=== PATIENT | female | born 1955 | race Caucasian/White ===

== ENCOUNTER → 2018-04-01 | Outpatient (CLI) | payer OTHER ==
[~2018-04-01] MED LIST: ASPI81TA50 PO; CLON0.3T PO; FLUO20TA11 PO; FURO20TA3 PO; GLIM4TAB2 PO; IBUP800T19 PO; INSU100I13 SQ; METF10007 PO; SIMV20TA3 PO; VALS1TAB3 PO
--- NOTE | 2018-04-01 14:36 | RAD ---
DATE: 04/01/2018 EXAM: MAMMO CRISTAL TROTTER, BREAST LEFT HISTORY: Left breast lump COMPARISON: 02/19/2015 This study was interpreted with the benefit of Computerized Aided Detection (CAD) Breast Density: SCATTERED The breast parenchyma shows scattered fibroglandular densities. Breast parenchyma level B. FINDINGS: 2-D and 3-D tomosynthesis imaging was performed in CC and MLO projections. A BB was placed over the area of palpable concern in the upper inner left breast. The underlying breast at the level of the BB shows only fatty tissues. No suspicious breast density is seen. No new or enlarging breast densities are evident. There are benign type calcifications in both breasts. No suspicious microcalcifications have developed. Left breast ultrasound, 04/01/2018: A targeted ultrasound exam was performed of the area of palpable concern. At the 10:00 location left breast approximately 12 cm from the nipple there is a smooth oval shaped subcutaneous nodule which demonstrates echogenicity similar to that of the adjacent fatty structures. It measures approximately 3 x 2 x 1 cm. It appears to be slightly larger than on the previous study. The features are compatible with a lipoma. No other abnormality abnormalities identified. IMPRESSION: 1. Stable mammograms without evidence of malignancy. 2. Subcutaneous lipoma in the upper inner left breast which appears to have increased slightly in size since 2016. BI-RADS CATEGORY: 2 BENIGN FINDING(S) RECOMMENDED FOLLOW-UP: 12M 12 MONTH FOLLOW-UP PQRS compliance statement: Patient information was entered into a reminder system with a target due date for the next mammogram. Mammography is a sensitive method for finding small breast cancers, but it does not detect them all and is not a substitute for careful clinical examination. A negative mammogram does not negate a clinically suspicious finding and should not result in delay in biopsying a clinically suspicious abnormality. "Our facility is accredited by the [employer] Mammography Program."
== END | disposition home or self-care (01) ==
LOC: MAMMO 12:58
PROVIDERS: ATTEND Physician Assistant Medical
DX: N63.22 Unspecified lump in the left breast, upper inner quadrant (principal)
CPT/HCPCS: 76641; 77066; G0279; 77062

== ENCOUNTER → 2018-07-20 | Day surgery (SDC) | payer OTHER ==
[~2018-07-20] MED LIST changes: +ALBUTEROL SULFATE 2.5 MG/3 ML NEBU. NEB PRN; +ATROPINE 0.5 MG/5 ML DISP.SYRIN. IV PRN; +FLUO40CA9 PO; +GABA-586 PO; +HYDR-2765 PO; +INSU100V SQ; +IV RINGERS SOLUTION,LACTATED 1,000 ML IV SCH; +LIDOCAINE 2% PF Vial for OR 5 ML VIAL. ONE; +MELO15TA6 PO; +NALOXONE 0.4 MG/ML VIAL. IV PRN; +ONDANSETRON PF 4 MG/2 ML VIAL. IV PRN; +PANT40TA5 PO; +PROPOFOL 20 ML IV ONE; +diphenhydrAMINE 50 MG/ML VIAL IV PRN
[2018-07-20 14:32] VITALS: BP 128/76
== END | disposition home or self-care (01) ==
LOC: SURG 11:50
PROVIDERS: ATTEND Internal Medicine Gastroenterology
DX: K20.8 Other esophagitis (principal); K22.2 Esophageal obstruction; E11.9 Type 2 diabetes mellitus without complications; I10 Essential (primary) hypertension; Z79.899 Other long term (current) drug therapy; Z90.710 Acquired absence of both cervix and uterus; Z79.84 Long term (current) use of oral hypoglycemic drugs; Z90.49 Acquired absence of other specified parts of digestive tract; Z98.890 Other specified postprocedural states; Z91.012 Allergy to eggs
CPT/HCPCS: 43239; 82947; J2704; J7120; J2001

== ENCOUNTER → 2018-08-02 | Outpatient (CLI) | payer OTHER ==
[2018-07-20 14:32] VITALS: BP 128/76
[~2018-08-02] MED LIST changes: -ALBUTEROL SULFATE 2.5 MG/3 ML NEBU. NEB PRN; -ATROPINE 0.5 MG/5 ML DISP.SYRIN. IV PRN; -IV RINGERS SOLUTION,LACTATED 1,000 ML IV SCH; -LIDOCAINE 2% PF Vial for OR 5 ML VIAL. ONE; -NALOXONE 0.4 MG/ML VIAL. IV PRN; -ONDANSETRON PF 4 MG/2 ML VIAL. IV PRN; -PROPOFOL 20 ML IV ONE; -diphenhydrAMINE 50 MG/ML VIAL IV PRN
--- NOTE | 2018-08-03 17:07 | RAD ---
EXAM: Single AP view of the lumbar spine was submitted for evaluation. DATE: 08/02/2018 4:31 PM INDICATION: Scoliosis progressing back pain COMPARISON: No Prior FINDINGS- IMPRESSION: Marked leftward curvature of the lumbar spine apex L3. Diffusely decreased bone mineral density. Moderate to severe multilevel disc height loss. Bony bridging is seen from the L2-L4 levels. SI joint degenerative changes are seen. Moderate colonic stool content. Electronically signed by: Ethan Chris MD (08/03/2018 5:04 PM) [facility]
== END | disposition home or self-care (01) ==
LOC: DXRAD 16:18
PROVIDERS: ATTEND Physician Assistant Medical
DX: M47.818 Spondylosis without myelopathy or radiculopathy, sacral and sacrococcygeal region (principal)
CPT/HCPCS: 72110

== ENCOUNTER 2018-10-06 16:31 | Inpatient (IN) | payer OTHER ==
[~2018-10-06] VITALS: Ht 160 cm; Wt 99.6 kg
--- NOTE | 2018-10-06 17:19 | PHYS DOC ---
Past History Past Medical History: Depression, Diabetes, Hypertension (REN BLACK DO) Past Surgical History: Appendectomy, Cholecystectomy, Other (REN BLACK DO) Smoking: Non-smoker Alcohol Use: Occasionally Drug Use: None (REN BLACK DO) Adult General Chief Complaint Chief Complaint: abdominal pain [facility] HPI 63-year-old female presents with left-sided abdominal pain. Patient status or hurting this morning out of the blue. She was doing a lot of moving around lifting things yesterday. The patient is diabetic. She is most concerned because she has had gangrenous bowel in the past and had 2 different surgeries for this. She is nervous about an obstruction. She has not eaten anything today. The pain is a deep ache, mild to moderate in intensity. She denies fever or chills. Denie s vomiting or diarrhea. (REN BLACK DO) Review of Systems Review of Systems Constitutional: Denies fever or chills [] Eyes: Denies change in visual acuity, redness, or eye pain [] HENT: Denies nasal congestion or sore throat [] Respiratory: Denies cough or shortness of breath [] Cardiovascular: No additional information not addressed in HPI [] GI: Lower quadrant abdominal pain. Denies nausea, vomiting, bloody stools or diarrhea [] : Denies dysuria or hematuria [] Musculoskeletal: Denies back pain or joint pain [] Integument: Denies rash or skin lesions [] Neurologic: Denies headache, focal weakness or sensory changes [] Endocrine: Denies polyuria or polydipsia [] All other systems were reviewed and found to be within normal limits, except as documented in this note. (REN BLACK DO) Allergies Allergies Allergies Coded Allergies Type Severity Reaction Last Updated Verified egg Allergy Intermediate 07/20/18 Yes morphine Adverse Reaction Intermediate Nausea 07/20/18 Yes (REN BLACK DO) Physical Exam Physical Exam Constitutional: Well developed, obese, well nourished, no acute distress, non-t oxic appearance. [] HENT: Normocephalic, atraumatic, bilateral external ears normal, oropharynx moist, no oral exudates, nose normal. [] Eyes: PERRLA, EOMI, conjunctiva normal, no discharge. [] Neck: Normal range of motion, no tenderness, supple, no stridor. [] Cardiovascular:Heart rate regular rhythm, no murmur [] Lungs & Thorax: Bilateral breath sounds clear to auscultation [] Abdomen: Bowel sounds normal, soft, LLQ tenderness, no masses, no pulsatile masses. [] Skin: Warm, dry, no erythema, no rash. [] Back: No tenderness, no CVA tenderness. [] Extremities: No tenderness, no cyanosis, no clubbing, ROM intact, no edema. [] Neurologic: Alert and oriented X 3, normal motor function, normal sensory function, no focal deficits noted. [] Psychologic: Affect normal, judgement normal, mood normal. [] (REN BLACK DO) EKG EKG [] (REN BLACK DO) Radiology/Procedures Radiology/Procedures [] (REN BLACK DO) Impressions: PROCEDURE: CT ABD PELV W/ IV CONTRST ONLY CT ABD PELV W/ IV CONTRST ONLY Indication: Left flank and abdominal pain Technique: Postcontrast CT imaging was performed of the abdomen pelvis, multiplanar reconstruction images submitted. No oral contrast was given. One or more of the following individualized dose reduction techniques were utilized for this examination: 1. Automated exposure control 2. Adjustment of the mA and/or kV according to patient size 3. Use of iterative reconstruction technique. Comparison: August 03, 2007 Findings: There is moderate stranding and hazy inflammatory type change about the distal descending and proximal sigmoid colon at which there are diverticula present, no abscess, significant free fluid, free air. Bowel is not significantly dilated. Appendix is not confidently identified if still present. Both kidneys enhancing, no hydronephrosis. There is a hypodense lesion of the inferior right kidney about 1 cm in size, density measurements of a cyst 4 Hounsfield units. There is small hypodense lesion of the superior left kidney too small to accurately characterize about 0.6 cm. There is no adrenal nodularity. There is no abnormality of the pancreas. There is accessory spleen. No focal abnormality is identified of the liver or spleen. There is likely hepatic steatosis. Gallbladder is not seen. There is no significant abnormality of the limited visualized lung bases. There is moderate to severe lumbar levoscoliosis. There is multilevel lumbar facet degenerative change. There is multilevel degenerative disc disease, degree of interbody fusion L3-L4 and L2-3. There is some variable lateral recess stenosis of the lumbar spine. There is multilevel lumbar neural foramina compromise as the left L4-5 and L5-S1, also of visualized inferior thoracic levels. There is also degree of narrowing on the right at L2-3, minimally on the right at L5-S1. IMPRESSION: 1. There is moderate inflammatory change about the distal descending and proximal sigmoid colon, evidence of diverticulitis. Colon screening is advised after resolution of acute symptoms if this has not been performed. 2. There is lumbar levoscoliosis. There is multilevel lumbar facet degenerative change and degenerative disc disease as well as variable lateral recess stenosis and thoracolumbar neural foramina compromise. 3. There is small right renal cyst, small hypodense lesion of superior left kidney too small to accurately characterize. 4. There is likely hepatic steatosis. Electronically signed by: Melissa Zhang MD (10/06/2018 6:46 PM) [facility] DICTATED AND SIGNED BY: MELISSA ZHANG MD (CONSTANTIN GOMEZ Jr., DO) Course & Med Decision Making Course & Med Decision Making Pertinent Labs and Imaging studies reviewed. (See chart for details) The patient's workup is pending. I'm signing the patient out to Dr. Gomez at 1814. He will determine her final disposition. [] (REN BLACK DO) Dragon Disclaimer Dragon Disclaimer This electronic medical record was generated, in whole or in part, using a voice recognition dictation system. (REN BLACK DO) Departure Departure: Impression: Primary Impression: Acute diverticulitis Disposition: ADMITTED INPATIENT Admitting Physician: Carlito Hogue (CONSTANTIN GOMEZ Jr., DO) Condition: IMPROVED Referrals: MOSES HERNANDEZ (PCP) REN BLACK DO Oct 06, 2018 17:19 CONSTANTIN GOMEZ Jr., DO Oct 06, 2018 19:55
[2018-10-06 17:40] LABS: BASO % 0 % (0-3); EOS # 0.1 x10^3/uL (0.0-0.7); EOS % 1 % (0-3); HEMATOCRIT 38.1 % (36.0-47.0); HEMOGLOBIN 13.2 g/dL (12.0-15.5); LYMPH # 1.4 x10^3/uL (1.0-4.8); LYMPH % 17 % (24-48); MEAN CORPUSCULAR HEMOGLOBIN 31 pg (25-35); MEAN CORPUSCULAR HGB CONC 35 g/dL (31-37); MEAN CORPUSCULAR VOLUME 88 fL (79-100); MONO # 0.5 x10^3/uL (0.0-1.1); MONO % 7 % (0-9); NEUT # 6.1 x10^3uL (1.8-7.7); NEUT % 74 % (31-73); PLATELET COUNT 274 x10^3/uL (140-400); RED BLOOD COUNT 4.32 x10^6/uL (3.50-5.40); RED CELL DISTRIBUTION WIDTH 14.6 % (11.5-14.5); WHITE BLOOD COUNT 8.2 x10^3/uL (4.0-11.0)
[2018-10-06 17:48] LABS: ALBUMIN 3.9 g/dL (3.4-5.0); ALBUMIN/GLOBULIN RATIO 1.2 (1.0-1.7); CALCIUM 9.1 mg/dL (8.5-10.1); CREATININE 1.2 mg/dL (0.6-1.0); GFR 45.2; POTASSIUM 3.5 mmol/L (3.5-5.1); TOTAL BILIRUBIN 2.1 mg/dL (0.2-1.0); TOTAL PROTEIN 7.2 g/dL (6.4-8.2)
[2018-10-06 17:59] LABS: BACTERIA,URINE MANY /HPF (0-FEW); BILIRUBIN,URINE NEG (NEG); CLARITY,URINE HAZY; COLOR,URINE YELLOW; GLUCOSE,URINE NEG (NEG); NITRITE,URINE NEG (NEG); RBC,URINE 0 /HPF (0-2); SQUAMOUS EPITHELIAL CELL,UR OCC /LPF; UROBILINOGEN,URINE 4 mg/dL (0.2 mg/dL); WBC,URINE OCC /HPF (0-4)
[2018-10-06] MEDS ORDERED: IOHEXOL 300 MG/ML 75 ML VIAL. IV ONE (18:15)
--- NOTE | 2018-10-06 18:49 | RAD ---
CT ABD PELV W/ IV CONTRST ONLY Indication: Left flank and abdominal pain Technique: Postcontrast CT imaging was performed of the abdomen pelvis, multiplanar reconstruction images submitted. No oral contrast was given. One or more of the following individualized dose reduction techniques were utilized for this examination: 1. Automated exposure control 2. Adjustment of the mA and/or kV according to patient size 3. Use of iterative reconstruction technique. Comparison: August 03, 2007 Findings: There is moderate stranding and hazy inflammatory type change about the distal descending and proximal sigmoid colon at which there are diverticula present, no abscess, significant free fluid, free air. Bowel is not significantly dilated. Appendix is not confidently identified if still present. Both kidneys enhancing, no hydronephrosis. There is a hypodense lesion of the inferior right kidney about 1 cm in size, density measurements of a cyst 4 Hounsfield units. There is small hypodense lesion of the superior left kidney too small to accurately characterize about 0.6 cm. There is no adrenal nodularity. There is no abnormality of the pancreas. There is accessory spleen. No focal abnormality is identified of the liver or spleen. There is likely hepatic steatosis. Gallbladder is not seen. There is no significant abnormality of the limited visualized lung bases. There is moderate to severe lumbar levoscoliosis. There is multilevel lumbar facet degenerative change. There is multilevel degenerative disc disease, degree of interbody fusion L3-L4 and L2-3. There is some variable lateral recess stenosis of the lumbar spine. There is multilevel lumbar neural foramina compromise as the left L4-5 and L5-S1, also of visualized inferior thoracic levels. There is also degree of narrowing on the right at L2-3, minimally on the right at L5-S1. IMPRESSION: 1. There is moderate inflammatory change about the distal descending and proximal sigmoid colon, evidence of diverticulitis. Colon screening is advised after resolution of acute symptoms if this has not been performed. 2. There is lumbar levoscoliosis. There is multilevel lumbar facet degenerative change and degenerative disc disease as well as variable lateral recess stenosis and thoracolumbar neural foramina compromise. 3. There is small right renal cyst, small hypodense lesion of superior left kidney too small to accurately characterize. 4. There is likely hepatic steatosis. Electronically signed by: Singh Sepulveda MD (10/06/2018 6:46 PM) [facility]
[2018-10-06] MEDS ORDERED: CIPROFLOXACIN 400MG PREMIX 200 ML IV ONE (19:45)
[2018-10-06] MEDS ORDERED: ONDANSETRON PF 4 MG/2 ML VIAL. IV PRN (20:00)
[2018-10-06] MEDS ORDERED: DEXTROSE 50% 25 GM / 50ML DISP.SYRIN. IV PRN (20:00)
[2018-10-06] MEDS ORDERED: ACETAMINOPHEN 325 MG TABLET PO PRN (20:00)
--- NOTE | 2018-10-06 21:30 | NUR ---
Admission: The patient, STONEY CURIEL, 63 y/o, F admitted by MAYRA BAY MD, was given written information regarding hospital policies, unit procedures and contact persons. Pt admitted to room 117 from ED. Dx: Acute Diverticulitis. Pt c/o sharp LLQ abdominal pain radiating to her back since this AM, worsened with movement. Reports complicated GI history with multiple bowel obstructions and surgeries. Complete PMH and medications reviewed with pt. Given PRN fentanyl IVP per request for pain. IV fluids infusing per order. VSS. Pt on a clear liquid diet, tolerating thus far. POC discussed with patient, V/U. Valuables were checked and logged. Left in room with patient.
[2018-10-06 21:36] VITALS: BP 129/67
[2018-10-06] MEDS: IV NORMAL SALINE 1,000ML 1,000 ML IV SCH (21:53)
[2018-10-06] MEDS ORDERED: HYDR-2765 PO (22:13)
[2018-10-07] MEDS ORDERED: GABA-586 PO (04:04)
[2018-10-07 05:28] VITALS: BP 119/70
[2018-10-07] MEDS: IV NORMAL SALINE 1,000ML 1,000 ML IV SCH ×2 (05:43→13:12)
[2018-10-07 06:35] LABS: BASO % 0 % (0-3); EOS # 0.1 x10^3/uL (0.0-0.7); EOS % 2 % (0-3); HEMATOCRIT 36.1 % (36.0-47.0); HEMOGLOBIN 12.4 g/dL (12.0-15.5); LYMPH # 1.1 x10^3/uL (1.0-4.8); LYMPH % 19 % (24-48); MEAN CORPUSCULAR HEMOGLOBIN 30 pg (25-35); MEAN CORPUSCULAR HGB CONC 34 g/dL (31-37); MEAN CORPUSCULAR VOLUME 88 fL (79-100); MONO # 0.5 x10^3/uL (0.0-1.1); MONO % 9 % (0-9); NEUT # 4.2 x10^3uL (1.8-7.7); NEUT % 71 % (31-73); PLATELET COUNT 213 x10^3/uL (140-400); RED BLOOD COUNT 4.09 x10^6/uL (3.50-5.40); RED CELL DISTRIBUTION WIDTH 14.4 % (11.5-14.5); WHITE BLOOD COUNT 5.9 x10^3/uL (4.0-11.0)
[2018-10-07 06:45] LABS: CALCIUM 8.5 mg/dL (8.5-10.1); GFR 55.8
[2018-10-07 06:48] LABS: POTASSIUM 2.9 mmol/L (3.5-5.1)
[2018-10-07] MEDS ORDERED: POTASSIUM CHLORIDE 20 MEQ TABLET.ER. PO ONE (07:30)
[2018-10-07] MEDS: INSULIN LISPRO 300 UNITS/3 ML VIAL. SQ SCH ×3 (08:21→16:52)
[2018-10-07] MEDS: POLYETHYLENE GLYCOL 3350 17 GM PACKET. PO PRN ×2 (10:10→10:16)
[2018-10-07 11:00] VITALS: BP 148/81
[2018-10-07 15:00] VITALS: BP 142/62
[2018-10-07 19:00] VITALS: BP 165/80
--- NOTE | 2018-10-07 20:10 | HP ---
ADMIT DATE: 10/06/2018 ATTENDING PHYSICIAN: Dr. Joiner. CHIEF COMPLAINT: Left lower quadrant abdominal pain. HISTORY OF PRESENT ILLNESS: The patient is a very pleasant, alert 63-year-old female presenting with a 1-day history of significant sharp left lower quadrant pain. She had no recent travel or injuries. She has had previous diagnoses of diverticulitis as well as a gangrenous bowel. She is quite nervous about ____. In the ED, she was ____ CT of the abdomen and pelvis showed no evidence of obstruction. There is moderate stranding and hazy inflammatory type changes throughout distal descending and proximal sigmoid colon consistent with acute ____ fluids and antibiotics were started. Pain control management. She was admitted then with acute diverticulitis. ____ as a child she has diabetes and hypertension. ALLERGIES: SHE HAS ALLERGIES TO EGG AND MORPHINE CAUSING NAUSEA. CURRENT MEDICINES: Reviewed. She takes aspirin, clonidine, Prozac, Lasix, losartan, hydrochlorothiazide. In the ED, she was given Flagyl along with the insulin, fentanyl and Cipro. SOCIAL HISTORY: She is a nonsmoker, nondrinker. FAMILY HISTORY: Her mom at age 78 of complications of chronic obstructive pulmonary disease. Father at age 81 also complication of lung disease and smoking. Her has 6 years ago. He had Cop[place]'s chorea, one daughter is alive at age 46. It is unclear whether she has the autosomal dominant condition. The daughter did not want to be genetically tested. She is retired. She lives independently. REVIEW OF SYSTEMS: Significant for the lower abdominal pain. She has been eating tomatoes. No chills, fever, nausea, vomiting, localized pain. She denied any recent travel or palpitations, dysuria. All other systems reviewed and determined to be negative. PHYSICAL EXAMINATION: GENERAL: When I saw her, this is a pleasant, alert, middle-aged female. INITIAL VITAL SIGNS: In the ED showed a blood pressure 148/81, pulse is 100 and regular. She was afebrile. HEENT: Head is without trauma. Pupils are reactive. Sclerae nonicteric. The oropharynx is clear. NECK: Supple, no bruits identified. LUNGS: Otherwise clear. CARDIOVASCULAR: Showed regular heart tones. No obvious gallops. Peripheral pulses palpable. ABDOMEN: Soft. Minimal guarding and tenderness to palpation in the left lower quadrant. There is no rebound tenderness. Bowel sounds are hypoactive. No masses palpated. EXTREMITIES: Show no cyanosis or edema. NEUROLOGIC: Focally intact. PERTINENT LABORATORY STUDIES: Please review the database. ASSESSMENT: 1. A 63-year-old female with acute diverticulitis documented and verified by CT abdomen. 2. 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 I do not find any bowel ischemia at this time. 3. Essential hypertension. 4. Type 2 diabetes. PLAN: 1. Admit to the inpatient unit. 2. IV fluids. 3. Clear liquid diet. 4. IV antibiotics as ordered. 5. Pain control. 6. Blood pressure meds held. ALEXY JOINER MD DR: AMRITA/nts JOB#: [id number] / [id number]
[2018-10-07] MEDS: LACTOBACILLUS RHAMNOSUS GG 1 CAPSULE. PO SCH (20:43)
[2018-10-08] MEDS ORDERED: ONDANSETRON PF 4 MG/2 ML VIAL. ONE (02:48)
[2018-10-08] MEDS: ONDANSETRON PF 4 MG/2 ML VIAL. IV PRN ×2 (03:00→08:38)
--- NOTE | 2018-10-08 03:07 | NUR ---
Pt awoke diaphoretic, nauseous and dry heaving. FSBS checked = 197 mg/dL. PRN zofran administered as indicated, pt reports some relief. Currently sitting up in bed on laptop.
[2018-10-08 05:25] VITALS: BP 158/90
[2018-10-08 07:37] LABS: CALCIUM 8.1 mg/dL (8.5-10.1); GFR 55.8; POTASSIUM 3.9 mmol/L (3.5-5.1)
[2018-10-08] MEDS: INSULIN LISPRO 300 UNITS/3 ML VIAL. SQ SCH ×3 (08:34→16:59)
[2018-10-08] MEDS: LACTOBACILLUS RHAMNOSUS GG 1 CAPSULE. PO SCH ×2 (08:35→20:41)
[2018-10-08] MEDS ORDERED: OXYC1TAB22 PO (08:36)
[2018-10-08] MEDS ORDERED: LEVO750T31 PO (08:36)
[2018-10-08 10:42] VITALS: BP 160/82
[2018-10-08] MEDS ORDERED: FLUoxetine HCL 20 MG CAPSULE PO ONE (11:30)
[2018-10-08] MEDS ORDERED: LOSARTAN 50 MG TABLET. PO ONE (11:30)
[2018-10-08] MEDS ORDERED: PANTOPRAZOLE 40 MG TABLET. PO ONE (11:30)
--- NOTE | 2018-10-08 13:24 | PN ---
DATE: 10/08/2018 CHIEF COMPLAINT: Abdominal pain. SUBJECTIVE: The patient is still not eating much. She has occasional pain, requiring occasional IV narcotics. At first, she wanted to go home and then she changed her mind. There is a lot of hesitancy, anxiety and stress. OBJECTIVE: PHYSICAL EXAMINATION: VITAL SIGNS: Blood pressure today is 150/90, pulse is 81 and regular. She is afebrile. HEENT: Head is without trauma. Pupils are reactive. Sclerae are nonicteric. The oropharynx is clear. NECK: Supple, no bruits identified. LUNGS: Otherwise clear. CARDIOVASCULAR: Showed regular heart tones. No gallops. ABDOMEN: Soft. Minimal guarding to deep palpation in left lower quadrant. There are no masses. There is no rebound tenderness. Bowel sounds were normoactive. EXTREMITIES: Show no cyanosis or edema. NEUROLOGIC: Focally intact. No deficits. ASSESSMENT: 1. A 63-year-old female with acute diverticulitis, improving. 2. History of gangrenous bowel with multiple previous resections. 3. Diabetes. 4. Underlying depression with anxiety. 5. Hypertension. PLAN: 1. We will keep the patient here another day for IV antibiotics, pain, and nausea control. 2. Advance diet as tolerated. 3. Tentative discharge plans for tomorrow. ALEXY JOINER MD DR: AMRITA/daryl JOB#: [id number] / [id number]
[2018-10-08 15:08] VITALS: BP 149/78
--- NOTE | 2018-10-08 16:30 | NUR ---
Pt alert and oriented times 4. Pt tearful today, restarted Prozac and Valsartan. Tried to advance diet to soft, pt unable to tolerated. Discussed other options with pt. Encouraged pt to drink, eat as tolerated.
[2018-10-08 19:30] VITALS: BP 168/83
[2018-10-08 22:30] VITALS: BP 146/69
[2018-10-09 05:22] VITALS: BP 164/98
[2018-10-09] MEDS: cloNIDine HCL 0.1 MG TABLET PO SCH ×2 (05:34→09:00)
[2018-10-09] MEDS ORDERED: PANTOPRAZOLE 40 MG TABLET. PO SCH (07:30)
[2018-10-09] MEDS: LACTOBACILLUS RHAMNOSUS GG 1 CAPSULE. PO SCH (08:39)
[2018-10-09] MEDS ORDERED: hydroCHLOROthiazide 12.5 MG CAPSULE PO SCH (09:00)
[2018-10-09] MEDS ORDERED: [UNRECOGNIZED DRUG - OTHER] PO SCH (09:00)
[2018-10-09] MEDS ORDERED: HYDROCHLOROTHIAZIDE PO SCH (09:00)
[2018-10-09] MEDS ORDERED: FLUoxetine HCL 20 MG CAPSULE PO SCH (09:00)
[2018-10-09] MEDS ORDERED: VALSARTAN PO SCH (09:00)
[2018-10-09] MEDS ORDERED: cloNIDine HCL 0.1 MG TABLET PO SCH (09:00)
[2018-10-09] MEDS ORDERED: LOSARTAN 50 MG TABLET. PO SCH (09:00)
[2018-10-09] MEDS: INSULIN LISPRO 300 UNITS/3 ML VIAL. SQ SCH (09:04)
[2018-10-09 09:06] VITALS: BP 191/103
[2018-10-09] MEDS ORDERED: HYDR12.572 PO (09:56)
[2018-10-09] MEDS ORDERED: LOSA50TA86 PO (09:57)
[2018-10-09] MEDS ORDERED: CLON0.3T PO (09:57)
--- NOTE | 2018-10-09 10:35 | NUR ---
Patient is D/C home with self care. Patient's IV is D/C'd patient is given all belongings at time of d/c as well as prescriptions. Patient ambulated off unit accompanied by family.
--- NOTE | 2018-10-09 12:02 | DS ---
DATE OF DISCHARGE: 10/09/2018 ATTENDING PHYSICIAN: Dr. Joiner. FINAL DISCHARGE DIAGNOSES: 1. Acute diverticulitis of sigmoid colon, resolved. 2. History of bowel obstruction. 3. Multiple previous abdominal surgery without any evidence of obstruction. 4. Essential hypertension. 5. Type 2 diabetes. HISTORY AND PHYSICAL: This 63-year-old female presented to the ED with left-sided abdominal pain, nausea and evidence of acute diverticulitis. She is concerned about obstruction and her inflammatory bowel disease. PHYSICAL EXAMINATION: Please see the dictated note. PERTINENT LABORATORY AND X-RAY STUDIES: CT of the abdomen and pelvis on admission was consistent with acute diverticulitis involving the sigmoid colon. No abscess identified. No obstruction identified. LABORATORY STUDIES: On the database. HOSPITAL COURSE: The patient was admitted. She was started on IV fluids, pain control, nausea control and intravenous antibiotics in the form of Flagyl. She tolerated the nausea well and diet was slowly advanced. By the third hospital day, she was able to eat some small feedings and solid foods. She did well and pain was managed. on the fourth hospital day, the patient was up and ambulating. Pain was controlled and she wanted to go home. I felt this is reasonable. Therefore wrote a script for cephalexin 500 mg p.o. t.i.d. for 7 more days. She will follow up with her regular physician Kayla Presley as scheduled. She will continue her other home meds without any changes including aspirin, clonidine, Prozac, Lasix, Neurontin, Amaryl, hydrocodone, Protonix, Zocor, and valsartan/hydrochlorothiazide unchanged. For now we have held the Mob. I recommended small feedings and bland diet for the next several days. The patient was then discharged from our hospital in stable condition with explicit directions on followup care. Total discharge time spent 38 minutes. ALEXY JOINER MD DR: AMRITA/daryl JOB#: [id number] / [id number] MAYRA Tan MD, KAYLA MURRAY
== END 2018-10-09 10:35 | disposition home or self-care (01) | DRG 392 ==
LOC: ER 16:31 → 1 SOUTH 19:56
PROVIDERS: ADMIT Internal Medicine; ATTEND Internal Medicine
DX: K57.32 Diverticulitis of large intestine without perforation or abscess without bleeding (principal); M41.9 Scoliosis, unspecified; M51.36 Other intervertebral disc degeneration, lumbar region; K76.0 Fatty (change of) liver, not elsewhere classified; E11.9 Type 2 diabetes mellitus without complications; I10 Essential (primary) hypertension; F41.8 Other specified anxiety disorders; K52.9 Noninfective gastroenteritis and colitis, unspecified; M48.061 Spinal stenosis, lumbar region without neurogenic claudication; Z82.5 Family history of asthma and other chronic lower respiratory diseases; Z90.49 Acquired absence of other specified parts of digestive tract; N28.1 Cyst of kidney, acquired; F32.9 Major depressive disorder, single episode, unspecified
CPT/HCPCS: 36415; 74177; 80048; 80053; 81001; 82947; 83605; 85025; 87086; 87186; 96365; J0744; J1815; J2405; J3010; J3490; Q9967; 99285-25; J7030

== ENCOUNTER → 2018-11-05 | Outpatient (CLI) | payer OTHER ==
[2018-10-09 09:06] VITALS: BP 191/103
[~2018-11-05] MED LIST changes: +HYDR12.572 PO; +LEVO750T31 PO; +LOSA50TA86 PO; +OXYC1TAB22 PO
[2018-11-05 16:42] LABS: BASO % 0 % (0-3); EOS # 0.1 x10^3/uL (0.0-0.7); EOS % 2 % (0-3); HEMATOCRIT 36.3 % (36.0-47.0); HEMOGLOBIN 12.4 g/dL (12.0-15.5); LYMPH # 1.5 x10^3/uL (1.0-4.8); LYMPH % 26 % (24-48); MEAN CORPUSCULAR HEMOGLOBIN 30 pg (25-35); MEAN CORPUSCULAR HGB CONC 34 g/dL (31-37); MEAN CORPUSCULAR VOLUME 89 fL (79-100); MONO # 0.4 x10^3/uL (0.0-1.1); MONO % 7 % (0-9); NEUT # 3.7 x10^3uL (1.8-7.7); NEUT % 64 % (31-73); PLATELET COUNT 244 x10^3/uL (140-400); RED CELL DISTRIBUTION WIDTH 14.7 % (11.5-14.5); WHITE BLOOD COUNT 5.7 x10^3/uL (4.0-11.0)
[2018-11-05 16:43] LABS: CALCIUM 8.7 mg/dL (8.5-10.1); CREATININE 1.1 mg/dL (0.6-1.0); POTASSIUM 3.3 mmol/L (3.5-5.1)
== END | disposition home or self-care (01) ==
LOC: LAB 15:40
PROVIDERS: ATTEND Internal Medicine
DX: K57.92 Diverticulitis of intestine, part unspecified, without perforation or abscess without bleeding (principal); R10.32 Left lower quadrant pain
CPT/HCPCS: 36415; 80048; 85025

== ENCOUNTER → 2020-04-13 | Outpatient (CLI) | payer OTHER ==
[~2020-04-13] MED LIST changes: -GLIM4TAB2 PO; +GLIM4TAB8 PO; -PANT40TA5 PO; +PANT40TA6 PO; +SIMV20TA18 PO; -SIMV20TA3 PO
--- NOTE | 2020-04-13 10:57 | RAD ---
PROCEDURE: XR SHOULDER_RIGHT 2+ VIEWS, XR FINGER(S)_RIGHT 2+VIEWS STUDY DATE: 04/13/2020 CLINICAL INDICATION / HISTORY: Reason: RIGHT THUMB AND SHOULDER PAIN / Spl. Instructions: / History: . TECHNIQUE: AP internal and external rotation views with a Y- view were obtained. COMPARISON: None FINDINGS: No fracture, dislocation or bone destruction is identified. There are mild degenerative ch anges at the right AC joint. No calcifications are seen in relation to the rotator cuff insertion. IMPRESSION: Mild degenerative changes at the acromioclavicular joint. Otherwise no acute findings in the right shoulder. PROCEDURE: XR SHOULDER_RIGHT 2+ VIEWS, XR FINGER(S)_RIGHT 2+VIEWS STUDY DATE: 04/13/2020 CLINICAL INDICATION / HISTORY: Reason: RIGHT THUMB AND SHOULDER PAIN / Spl. Instructions: / History: . TECHNIQUE: PA, lateral and oblique views of the right thumb. COMPARISON: None FINDINGS: No fracture or dislocation is identified. The bone density is normal. The joint spaces are maintained, and there are no erosions to suggest an inflammatory arthropathy. The soft tissues are un remarkable. IMPRESSION: No acute osseous abnormality in the right thumb.. Electronically signed by: Arturo Chin MD (04/13/2020 10:55 AM) [id number]
== END ==
LOC: DXRAD 08:53
PROVIDERS: ATTEND Physician Assistant
DX: M79.644 Pain in right finger(s) (principal); M25.511 Pain in right shoulder
CPT/HCPCS: 73030; 73140

== ENCOUNTER → 2020-05-07 | Outpatient (CLI) | payer OTHER ==
--- NOTE | 2020-05-07 16:36 | RAD ---
EXAM: Ultrasound neck soft tissues. HISTORY: Left posterior neck palpable focus. COMPARISON: None. 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 This reveals an ill-defined echogenic region within the subcutaneous compartm ent measuring 2.6 x 2.5 x 1.1 cm. Along the inferior aspect of this region, there is an immediately s ubcutaneous heterogeneous hypoechoic region that measures 7 x 4 mm. Superior to the region of concern, another very hypoechoic or anechoic intracutaneous focus measures 3 mm. IMPRESSION: 1. At the site of concern along the left posterior neck, an immediately subcutaneous 7 x 4 mm hypoech oic focus suggests a small abscess or sebaceous cyst. Surrounding subcutaneous hyperechogenicity may reflect cellulitis or edema. This is favored over a lipoma with a soft tissue component. Correlate cl inically for an infected cutaneous/subcutaneous lesion. Follow-up to resolution is recommended. Imagi ng reassessment or biopsy is recommended if this does not resolve or the diagnosis remains unclear. 2. Correlate for another 3 mm cutaneous lesion just superior to the site of concern. Electronically signed by: Koby Meyer MD (05/07/2020 4:34 PM) [facility]
== END ==
LOC: US 15:42
PROVIDERS: ATTEND Nurse Practitioner Family
DX: R22.1 Localized swelling, mass and lump, neck (principal)
CPT/HCPCS: 76536

== ENCOUNTER → 2020-08-28 | Outpatient (CLI) | payer OTHER ==
--- NOTE | 2020-08-28 17:33 | RAD ---
EXAM: XR FOOT_RIGHT 3 VIEWS, XR EXAM OF ANKLE_RIGHT 3VIEWS 08/28/2020 11:40 AM CLINICAL INDICATION: Acute ankle and foot pain COMPARISON: None TECHNIQUE: 3 views of the right ankle and 3 views of the right foot FINDINGS: Right ankle: No acute fracture. Probable sequela of old medial ankle injury. Talar dome is intact. An kle mortise is symmetric. There are prominent plantar and Achilles insertional calcaneal enthesophyte s. There is soft tissue thickening of the distal Achilles tendon. Right foot: There is a linear osseous density along the distal medial calcaneus, age indeterminate bu t possibly acute. No other evidence of fracture.. Alignment is normal. Joint spaces are maintained. C alcaneal enthesophytes with thickening along the Achilles tendon stripe, as above. There is soft tiss ue swelling of the dorsal forefoot along the metatarsals. IMPRESSION: 1. Linear osseous density along the distal medial calcaneus, indeterminate. This could be a small acu te fracture or sequela of old injury. Correlate with site of pain. 2. There is likely sequela of old medial ankle injury but no definite acute fracture of the ankle. 3. Dorsal soft tissue swelling of the forefoot along the metatarsals. Calcaneal enthesophytes. Soft tissue thickening of the distal Achilles tendon stripe suspicious for t endinopathy. Electronically signed by: Krissy Faustin MD (08/28/2020 5:31 PM) [id number]
== END ==
LOC: RAD 11:28
PROVIDERS: ATTEND Physician Assistant
DX: M79.89 Other specified soft tissue disorders (principal); M25.571 Pain in right ankle and joints of right foot; M79.671 Pain in right foot
CPT/HCPCS: 73610; 73630

== ENCOUNTER → 2021-04-24 | Day surgery (SDC) | payer OTHER ==
[2021-04-24 12:17] VITALS: BP 147/81
== END | disposition home or self-care (01) ==
LOC: SURG 11:41
PROVIDERS: ATTEND Anesthesiology
DX: M53.3 Sacrococcygeal disorders, not elsewhere classified (principal); M46.1 Sacroiliitis, not elsewhere classified; M54.16 Radiculopathy, lumbar region; I10 Essential (primary) hypertension; E11.9 Type 2 diabetes mellitus without complications; E78.00 Pure hypercholesterolemia, unspecified; G47.30 Sleep apnea, unspecified; E66.9 Obesity, unspecified; F32.9 Major depressive disorder, single episode, unspecified; Z90.49 Acquired absence of other specified parts of digestive tract; Z90.710 Acquired absence of both cervix and uterus; Z98.890 Other specified postprocedural states; Z79.899 Other long term (current) drug therapy; Z88.5 Allergy status to narcotic agent; Z91.012 Allergy to eggs; Z79.82 Long term (current) use of aspirin; Z80.1 Family history of malignant neoplasm of trachea, bronchus and lung; Z82.49 Family history of ischemic heart disease and other diseases of the circulatory system
CPT/HCPCS: 99204; G0463